=== PATIENT | male | born 1960 | race Two or more races ===

== ENCOUNTER 2019-12-30 15:07 | Inpatient (IN) | payer BC, OTHER ==
[~2019-12-30] VITALS: Ht 170.2 cm; Wt 80.6 kg
[2019-12-30 17:11] LABS: BASOPHILS % (AUTO) 0 % (0-1); EOSINOPHILS % (AUTO) 0 % (1-7); LYMPHOCYTES % (AUTO) 18 % (22-44); MEAN CORPUSCULAR HEMOGLOBIN 29.6 pg (27.5-34.5); MEAN CORPUSCULAR HGB CONC 34.6 g/dL (33.2-36.2); MEAN PLATELET VOLUME 8.1 fL (7.4-10.4); MONOCYTES % (AUTO) 4 % (2-9); NEUTROPHILS % (AUTO) 77 % (42-75); PLATELET COUNT 195 x10^3/uL (130-400); RED BLOOD COUNT 5.78 x10^6/uL (4.38-5.82); RED CELL DISTRIBUTION WIDTH 12.3 % (9.4-14.8)
[2019-12-30 17:15] LABS: MD NO
[2019-12-30 17:22] LABS: ALKALINE PHOSPHATASE 94 U/L (45-117); BILIRUBIN,TOTAL 0.4 mg/dL (0.2-1.0); TOTAL PROTEIN 7.7 g/dL (6.4-8.2)
[2019-12-30 17:28] LABS: ANION GAP 4 mmol/L (5-15); CHLORIDE 100 mmol/L (98-107)
--- NOTE | 2019-12-30 17:40 | NUR ---
PIV PLACED. IVF RUNNING. EKG COMPLETE. DAUGHTER AT BEDSIDE TO TRANSLATE.
[2019-12-30 17:47] LABS: CALCIUM 8.6 mg/dL (8.5-10.1); CREATININE 0.97 mg/dL (0.7-1.3)
[2019-12-30 17:48] LABS: ALANINE AMINOTRANSFERASE 48 U/L (12-78); ALBUMIN 2.9 g/dL (3.4-5.0)
[2019-12-30] MEDS ORDERED: SODIUM CHLORIDE FLUSH 10ML SYR IVF ONE (18:00)
[2019-12-30] MEDS ORDERED: SODIUM CHLORIDE 0.9% 1,000ML IVBOLUS ONE (18:00)
--- NOTE | 2019-12-30 18:23 | NUR ---
MD AT BEDSIDE FOR ASSESSMENT. MD NOTIFIED ABOUT LOW OXYGEN LEVEL. 87% RA. PT PLACED ON 2L, 96%
[2019-12-30] MEDS ORDERED: CEFTRIAXONE PMX 1GM/50ML 50 ML ONE (18:51)
[2019-12-30] MEDS ORDERED: CEFTRIAXONE PMX 1GM/50ML 50 ML IV ONE (19:00)
[2019-12-30] MEDS ORDERED: ACETAMINOPHEN 500 MG TABLET ONE (20:23)
[2019-12-30] MEDS ORDERED: ACETAMINOPHEN 500 MG TABLET PO ONE (20:30)
--- NOTE | 2019-12-30 21:13 | NUR ---
REPORT GIVEN TO DINA WOO.
[2019-12-30] MEDS ORDERED: IBUPROFEN 200 MG TABLET PO ONE (22:30)
[2019-12-30 23:14] VITALS: BP 132/83
[2019-12-30] MEDS: DEXAMETHASONE 4 MG TABLET PO SCH (23:30)
[2019-12-30] MEDS ORDERED: CEFTRIAXONE PMX 1GM/50ML 50 ML IVPB SCH (23:30)
[2019-12-30] MEDS ORDERED: PHARMACY MAY ADJ FOR RENAL FX MC PRN (23:30)
[2019-12-30] MEDS ORDERED: SODIUM CHLORIDE 0.9% 1,000 ML IV SCH (23:30)
[2019-12-30] MEDS ORDERED: ACETAMINOPHEN 325 MG TABLET PO PRN (23:30)
[2019-12-31] MEDS: ASCORBIC ACID 500 MG TABLET PO SCH ×3 (00:30→21:52)
[2019-12-31] MEDS: MELATONIN 5 MG TABLET PO SCH ×2 (00:30→21:52)
[2019-12-31 00:35] VITALS: BP 137/86
[2019-12-31] MEDS: DOXYCYCLINE 100 MG in DEXTROSE 5% 250 ML IV SCH ×2 (00:49→12:19)
[2019-12-31 02:15] LABS: RAPID INFLUENZA A Negative (Negative); RAPID INFLUENZA B Negative (Negative)
[2019-12-31 04:39] VITALS: BP 145/87
[2019-12-31 06:29] LABS: BASOPHILS % (AUTO) 1 % (0-1); EOSINOPHILS % (AUTO) 0 % (1-7); LYMPHOCYTES % (AUTO) 6 % (22-44); MEAN CORPUSCULAR HEMOGLOBIN 29.6 pg (27.5-34.5); MEAN CORPUSCULAR HGB CONC 35.1 g/dL (33.2-36.2); MEAN PLATELET VOLUME 8.5 fL (7.4-10.4); MONOCYTES % (AUTO) 3 % (2-9); NEUTROPHILS % (AUTO) 90 % (42-75); PLATELET COUNT 198 x10^3/uL (130-400); RED CELL DISTRIBUTION WIDTH 12.5 % (9.4-14.8)
[2019-12-31 06:30] LABS: MD NO
[2019-12-31 06:43] LABS: ALBUMIN 2.4 g/dL (3.4-5.0); ANION GAP 9 mmol/L (5-15); CALCIUM 7.8 mg/dL (8.5-10.1); CHLORIDE 105 mmol/L (98-107)
[2019-12-31 06:50] LABS: ALANINE AMINOTRANSFERASE 36 U/L (12-78); ALKALINE PHOSPHATASE 85 U/L (45-117); BILIRUBIN,TOTAL 0.6 mg/dL (0.2-1.0); CREATININE 0.75 mg/dL (0.7-1.3); TOTAL PROTEIN 6.7 g/dL (6.4-8.2); TROPONIN I < 0.015 ng/mL (0.000-0.045)
[2019-12-31] MEDS: DEXAMETHASONE 4 MG TABLET PO SCH (07:30)
[2019-12-31] MEDS ORDERED: FUROSEMIDE 40 MG/4 ML IV ONE (07:30)
[2019-12-31 07:47] VITALS: BP 144/88
[2019-12-31] MEDS ORDERED: REMDESIVIR 200 MG in SODIUM CHLORIDE 0.9% 250 ML IVPB ONE (08:00)
[2019-12-31] MEDS: ZINC SULFATE 220 MG CAPSULE PO SCH (08:07)
[2019-12-31] MEDS: CHOLECALCIFEROL 5,000u TAB PO SCH (08:07)
[2019-12-31] MEDS: THIAMINE 100MG TABLET PO SCH (08:07)
[2019-12-31 10:38] LABS: D-DIMER 0.82 ug/mlFEU (0.00-0.52)
[2019-12-31 13:34] VITALS: BP 126/65
[2019-12-31] MEDS: ENOXAPARIN 60 MG/0.6 ML SQ SCH (14:16)
[2019-12-31] MEDS ORDERED: TEMAZEPAM 15 MG CAPSULE PO PRN (17:00)
[2019-12-31 19:17] VITALS: BP 134/84
[2019-12-31] MEDS: DOXYCYCLINE 100MG TABLET PO SCH ×2 (21:00→21:52)
[2020-01-01 00:02] VITALS: BP 117/74
[2020-01-01 05:45] VITALS: BP 106/66
[2020-01-01 05:52] LABS: INTERNATIONAL NORMALIZED RATIO 1.01 (0.93-1.1); PROTHROMBIN TIME 10.7 Seconds (9.6-11.5)
[2020-01-01 05:53] LABS: BASOPHILS % (AUTO) 0 % (0-1); EOSINOPHILS % (AUTO) 0 % (1-7); LYMPHOCYTES % (AUTO) 10 % (22-44); MEAN CORPUSCULAR HEMOGLOBIN 29.2 pg (27.5-34.5); MEAN CORPUSCULAR HGB CONC 34.6 g/dL (33.2-36.2); MEAN PLATELET VOLUME 8.2 fL (7.4-10.4); MONOCYTES % (AUTO) 5 % (2-9); NEUTROPHILS % (AUTO) 84 % (42-75); PLATELET COUNT 258 x10^3/uL (130-400); RED CELL DISTRIBUTION WIDTH 12.5 % (9.4-14.8)
[2020-01-01 05:56] LABS: ALBUMIN 2.4 g/dL (3.4-5.0); ANION GAP 7 mmol/L (5-15); CALCIUM 8.4 mg/dL (8.5-10.1); CHLORIDE 105 mmol/L (98-107)
[2020-01-01 06:01] LABS: ALANINE AMINOTRANSFERASE 43 U/L (12-78); ALKALINE PHOSPHATASE 80 U/L (45-117); BILIRUBIN,TOTAL 0.5 mg/dL (0.2-1.0); CREATININE 0.74 mg/dL (0.7-1.3); TOTAL PROTEIN 6.8 g/dL (6.4-8.2)
[2020-01-01 06:37] LABS: MD SCAN
[2020-01-01 07:56] VITALS: BP 108/70
[2020-01-01] MEDS ORDERED: POTASSIUM CHLORIDE 20 MEQ TAB.ER.PRT PO SCH (08:00)
[2020-01-01] MEDS: REMDESIVIR 100 MG in SODIUM CHLORIDE 0.9% 250 ML IVPB SCH (08:04)
[2020-01-01] MEDS: THIAMINE 100MG TABLET PO SCH (08:10)
[2020-01-01] MEDS: ENOXAPARIN 60 MG/0.6 ML SQ SCH (08:10)
[2020-01-01] MEDS: ZINC SULFATE 220 MG CAPSULE PO SCH (08:10)
[2020-01-01] MEDS: CHOLECALCIFEROL 5,000u TAB PO SCH (08:10)
[2020-01-01] MEDS: ASCORBIC ACID 500 MG TABLET PO SCH ×2 (08:10→22:16)
[2020-01-01] MEDS: FUROSEMIDE 40 MG/4 ML IV SCH (08:11)
[2020-01-01] MEDS: DEXAMETHASONE 4 MG/ML, 1ML IVPush SCH (08:11)
[2020-01-01] MEDS: DOXYCYCLINE 100MG TABLET PO SCH ×2 (08:30→22:16)
[2020-01-01 12:57] VITALS: BP 113/70
[2020-01-01] MEDS: CEFTRIAXONE PMX 2GM/50ML 50 ML IVPB SCH (14:32)
[2020-01-01 19:15] VITALS: BP 131/82
[2020-01-01] MEDS: POTASSIUM CHLORIDE 20 MEQ TAB.ER.PRT PO SCH (22:17)
[2020-01-01] MEDS: MELATONIN 5 MG TABLET PO SCH (22:17)
[2020-01-02 00:37] VITALS: BP 127/78
[2020-01-02 06:26] LABS: CHLORIDE 106 mmol/L (98-107)
[2020-01-02 06:39] LABS: ANION GAP 7 mmol/L (5-15); CALCIUM 7.9 mg/dL (8.5-10.1); CREATININE 0.63 mg/dL (0.7-1.3)
[2020-01-02 06:40] LABS: ALANINE AMINOTRANSFERASE 42 U/L (12-78); ALBUMIN 2.2 g/dL (3.4-5.0); ALKALINE PHOSPHATASE 72 U/L (45-117); BILIRUBIN,TOTAL 0.5 mg/dL (0.2-1.0); C-REACTIVE PROTEIN, QUANT 3.18 mg/dL (0.02-0.49); TOTAL PROTEIN 5.8 g/dL (6.4-8.2)
[2020-01-02 08:03] VITALS: BP 122/73
[2020-01-02 08:08] LABS: BASOPHILS % (AUTO) 0 % (0-1); EOSINOPHILS % (AUTO) 0 % (1-7); LYMPHOCYTES % (AUTO) 12 % (22-44); MEAN CORPUSCULAR HEMOGLOBIN 29.4 pg (27.5-34.5); MEAN PLATELET VOLUME 7.9 fL (7.4-10.4); MONOCYTES % (AUTO) 4 % (2-9); NEUTROPHILS % (AUTO) 84 % (42-75); PLATELET COUNT 299 x10^3/uL (130-400); RED BLOOD COUNT 4.65 x10^6/uL (4.38-5.82); RED CELL DISTRIBUTION WIDTH 12.9 % (9.4-14.8)
[2020-01-02] MEDS ORDERED: ASCORBIC ACID 250 MG TAB ONE (08:42)
[2020-01-02] MEDS: ASCORBIC ACID 500 MG TABLET PO SCH ×2 (08:50→19:56)
[2020-01-02] MEDS: REMDESIVIR 100 MG in SODIUM CHLORIDE 0.9% 250 ML IVPB SCH (08:50)
[2020-01-02] MEDS: ENOXAPARIN 60 MG/0.6 ML SQ SCH (08:50)
[2020-01-02] MEDS: CHOLECALCIFEROL 5,000u TAB PO SCH (08:51)
[2020-01-02] MEDS: DOXYCYCLINE 100MG TABLET PO SCH ×2 (08:51→19:57)
[2020-01-02] MEDS: DEXAMETHASONE 4 MG/ML, 1ML IVPush SCH (08:51)
[2020-01-02] MEDS: THIAMINE 100MG TABLET PO SCH (08:51)
[2020-01-02] MEDS: FUROSEMIDE 40 MG/4 ML IV SCH (08:51)
[2020-01-02] MEDS: ZINC SULFATE 220 MG CAPSULE PO SCH (08:51)
[2020-01-02] MEDS: POTASSIUM CHLORIDE 20 MEQ TAB.ER.PRT PO SCH ×2 (08:51→19:57)
[2020-01-02 12:20] VITALS: BP 109/69
[2020-01-02 12:23] LABS: MD SCAN
[2020-01-02] MEDS: CEFTRIAXONE PMX 2GM/50ML 50 ML IVPB SCH (13:48)
[2020-01-02 18:53] VITALS: BP 118/68
[2020-01-02] MEDS: MELATONIN 5 MG TABLET PO SCH (19:56)
[2020-01-03 00:46] VITALS: BP 135/79
[2020-01-03 05:48] LABS: BASOPHILS % (AUTO) 0 % (0-1); EOSINOPHILS % (AUTO) 0 % (1-7); LYMPHOCYTES % (AUTO) 10 % (22-44); MEAN CORPUSCULAR HEMOGLOBIN 29.1 pg (27.5-34.5); MEAN CORPUSCULAR HGB CONC 34.1 g/dL (33.2-36.2); MEAN PLATELET VOLUME 7.8 fL (7.4-10.4); MONOCYTES % (AUTO) 5 % (2-9); NEUTROPHILS % (AUTO) 85 % (42-75); PLATELET COUNT 368 x10^3/uL (130-400); RED BLOOD COUNT 4.71 x10^6/uL (4.38-5.82); RED CELL DISTRIBUTION WIDTH 12.8 % (9.4-14.8)
[2020-01-03 05:49] LABS: CALCIUM 8.1 mg/dL (8.5-10.1); CHLORIDE 111 mmol/L (98-107)
[2020-01-03 05:55] LABS: ALANINE AMINOTRANSFERASE 47 U/L (12-78); ALBUMIN 2.2 g/dL (3.4-5.0); ALKALINE PHOSPHATASE 82 U/L (45-117); ANION GAP 7 mmol/L (5-15); BILIRUBIN,TOTAL 0.5 mg/dL (0.2-1.0); CREATININE 0.67 mg/dL (0.7-1.3); TOTAL PROTEIN 6.1 g/dL (6.4-8.2)
[2020-01-03 06:21] LABS: MD NO
[2020-01-03 06:58] VITALS: BP 147/82
[2020-01-03] MEDS: REMDESIVIR 100 MG in SODIUM CHLORIDE 0.9% 250 ML IVPB SCH (10:01)
[2020-01-03] MEDS: DEXAMETHASONE 4 MG/ML, 1ML IVPush SCH (10:02)
[2020-01-03] MEDS: ENOXAPARIN 60 MG/0.6 ML SQ SCH (10:02)
[2020-01-03] MEDS: POTASSIUM CHLORIDE 20 MEQ TAB.ER.PRT PO SCH ×2 (10:02→20:35)
[2020-01-03] MEDS: ASCORBIC ACID 500 MG TABLET PO SCH ×2 (10:02→20:35)
[2020-01-03] MEDS: FUROSEMIDE 40 MG/4 ML IV SCH (10:02)
[2020-01-03] MEDS: DOXYCYCLINE 100MG TABLET PO SCH (10:02)
[2020-01-03] MEDS: CHOLECALCIFEROL 5,000u TAB PO SCH (10:03)
[2020-01-03] MEDS: THIAMINE 100MG TABLET PO SCH (10:03)
[2020-01-03] MEDS: ZINC SULFATE 220 MG CAPSULE PO SCH (10:03)
[2020-01-03 13:34] VITALS: BP 115/68
[2020-01-03 19:50] VITALS: BP 117/72
[2020-01-03] MEDS: MELATONIN 5 MG TABLET PO SCH (20:35)
[2020-01-04 00:36] VITALS: BP 134/77
[2020-01-04 06:23] LABS: BASOPHILS % (AUTO) 0 % (0-1); EOSINOPHILS % (AUTO) 0 % (1-7); LYMPHOCYTES % (AUTO) 13 % (22-44); MEAN CORPUSCULAR HEMOGLOBIN 29.3 pg (27.5-34.5); MEAN CORPUSCULAR HGB CONC 34.3 g/dL (33.2-36.2); MEAN PLATELET VOLUME 7.4 fL (7.4-10.4); MONOCYTES % (AUTO) 6 % (2-9); NEUTROPHILS % (AUTO) 81 % (42-75); PLATELET COUNT 424 x10^3/uL (130-400); RED BLOOD COUNT 4.59 x10^6/uL (4.38-5.82); RED CELL DISTRIBUTION WIDTH 12.5 % (9.4-14.8)
[2020-01-04 06:24] LABS: MD NO
[2020-01-04 06:28] LABS: CHLORIDE 111 mmol/L (98-107)
[2020-01-04 06:33] LABS: ALANINE AMINOTRANSFERASE 48 U/L (12-78); ALBUMIN 2.1 g/dL (3.4-5.0); ALKALINE PHOSPHATASE 81 U/L (45-117); ANION GAP 8 mmol/L (5-15); BILIRUBIN,TOTAL 0.5 mg/dL (0.2-1.0); CALCIUM 8.4 mg/dL (8.5-10.1); CREATININE 0.56 mg/dL (0.7-1.3); TOTAL PROTEIN 6.1 g/dL (6.4-8.2)
[2020-01-04 07:39] VITALS: BP 144/74
[2020-01-04] MEDS: ENOXAPARIN 60 MG/0.6 ML SQ SCH (08:26)
[2020-01-04] MEDS: ZINC SULFATE 220 MG CAPSULE PO SCH (08:27)
[2020-01-04] MEDS: POTASSIUM CHLORIDE 20 MEQ TAB.ER.PRT PO SCH (08:27)
[2020-01-04] MEDS: DEXAMETHASONE 4 MG/ML, 1ML IVPush SCH (08:27)
[2020-01-04] MEDS: FUROSEMIDE 40 MG/4 ML IV SCH (08:27)
[2020-01-04] MEDS: CHOLECALCIFEROL 5,000u TAB PO SCH (08:27)
[2020-01-04] MEDS: THIAMINE 100MG TABLET PO SCH (08:27)
[2020-01-04] MEDS: ASCORBIC ACID 500 MG TABLET PO SCH ×2 (08:27→20:28)
[2020-01-04] MEDS: REMDESIVIR 100 MG in SODIUM CHLORIDE 0.9% 250 ML IVPB SCH (09:33)
[2020-01-04 12:07] VITALS: BP 168/69
[2020-01-04 16:53] VITALS: BP 166/70
[2020-01-04 18:50] VITALS: BP 105/63
[2020-01-04] MEDS: MELATONIN 5 MG TABLET PO SCH (20:28)
[2020-01-05 00:32] VITALS: BP 159/87
[2020-01-05 05:26] LABS: BASOPHILS % (AUTO) 0 % (0-1); EOSINOPHILS % (AUTO) 0 % (1-7); LYMPHOCYTES % (AUTO) 15 % (22-44); MEAN CORPUSCULAR HEMOGLOBIN 29.5 pg (27.5-34.5); MEAN CORPUSCULAR HGB CONC 34.9 g/dL (33.2-36.2); MEAN PLATELET VOLUME 7.3 fL (7.4-10.4); MONOCYTES % (AUTO) 6 % (2-9); NEUTROPHILS % (AUTO) 79 % (42-75); PLATELET COUNT 520 x10^3/uL (130-400); RED CELL DISTRIBUTION WIDTH 12.5 % (9.4-14.8)
[2020-01-05 05:33] LABS: ANION GAP 4 mmol/L (5-15); CALCIUM 8.1 mg/dL (8.5-10.1); CHLORIDE 110 mmol/L (98-107)
[2020-01-05 05:37] LABS: MD NO
[2020-01-05 05:41] LABS: ALANINE AMINOTRANSFERASE 39 U/L (12-78); ALKALINE PHOSPHATASE 73 U/L (45-117); BILIRUBIN,TOTAL 0.4 mg/dL (0.2-1.0); C-REACTIVE PROTEIN, QUANT 5.23 mg/dL (0.02-0.49); CREATININE 0.66 mg/dL (0.7-1.3); TOTAL PROTEIN 5.9 g/dL (6.4-8.2)
[2020-01-05 08:26] VITALS: BP 121/74
[2020-01-05] MEDS: THIAMINE 100MG TABLET PO SCH (08:55)
[2020-01-05] MEDS: CHOLECALCIFEROL 5,000u TAB PO SCH (08:55)
[2020-01-05] MEDS: ASCORBIC ACID 500 MG TABLET PO SCH ×2 (08:55→20:26)
[2020-01-05] MEDS: ENOXAPARIN 60 MG/0.6 ML SQ SCH (08:55)
[2020-01-05] MEDS: DEXAMETHASONE 4 MG/ML, 1ML IVPush SCH (08:55)
[2020-01-05] MEDS: ZINC SULFATE 220 MG CAPSULE PO SCH (08:55)
[2020-01-05 13:48] VITALS: BP 110/70
[2020-01-05 19:12] VITALS: BP 117/67
[2020-01-05] MEDS: MELATONIN 5 MG TABLET PO SCH (20:26)
[2020-01-06 00:54] VITALS: BP 158/84
[2020-01-06 06:37] LABS: BASOPHILS % (AUTO) 0 % (0-1); EOSINOPHILS % (AUTO) 1 % (1-7); LYMPHOCYTES % (AUTO) 17 % (22-44); MEAN CORPUSCULAR HGB CONC 34.4 g/dL (33.2-36.2); MEAN PLATELET VOLUME 7.2 fL (7.4-10.4); MONOCYTES % (AUTO) 7 % (2-9); NEUTROPHILS % (AUTO) 76 % (42-75); PLATELET COUNT 564 x10^3/uL (130-400); RED BLOOD COUNT 4.69 x10^6/uL (4.38-5.82); RED CELL DISTRIBUTION WIDTH 12.7 % (9.4-14.8)
[2020-01-06 06:38] LABS: MD NO
[2020-01-06 06:50] LABS: ALBUMIN 2.1 g/dL (3.4-5.0); ANION GAP 7 mmol/L (5-15); CALCIUM 8.1 mg/dL (8.5-10.1); CHLORIDE 112 mmol/L (98-107)
[2020-01-06 06:59] LABS: ALANINE AMINOTRANSFERASE 32 U/L (12-78); ALKALINE PHOSPHATASE 71 U/L (45-117); BILIRUBIN,TOTAL 0.4 mg/dL (0.2-1.0); CREATININE 0.66 mg/dL (0.7-1.3); TOTAL PROTEIN 6.1 g/dL (6.4-8.2)
[2020-01-06 08:14] VITALS: BP 124/71
[2020-01-06] MEDS: THIAMINE 100MG TABLET PO SCH (08:28)
[2020-01-06] MEDS: ASCORBIC ACID 500 MG TABLET PO SCH ×2 (08:28→20:46)
[2020-01-06] MEDS: CHOLECALCIFEROL 5,000u TAB PO SCH (08:28)
[2020-01-06] MEDS: DEXAMETHASONE 4 MG/ML, 1ML IVPush SCH (08:29)
[2020-01-06] MEDS: ZINC SULFATE 220 MG CAPSULE PO SCH (08:29)
[2020-01-06] MEDS: ENOXAPARIN 60 MG/0.6 ML SQ SCH (08:30)
[2020-01-06 14:36] VITALS: BP 107/63
[2020-01-06 19:05] VITALS: BP 129/68
[2020-01-06] MEDS: MELATONIN 5 MG TABLET PO SCH (20:46)
[2020-01-07 00:46] VITALS: BP 150/88
[2020-01-07 05:47] LABS: BASOPHILS % (AUTO) 1 % (0-1); EOSINOPHILS % (AUTO) 0 % (1-7); LYMPHOCYTES % (AUTO) 17 % (22-44); MEAN CORPUSCULAR HEMOGLOBIN 29.3 pg (27.5-34.5); MEAN CORPUSCULAR HGB CONC 34.3 g/dL (33.2-36.2); MEAN PLATELET VOLUME 7.1 fL (7.4-10.4); MONOCYTES % (AUTO) 8 % (2-9); NEUTROPHILS % (AUTO) 73 % (42-75); PLATELET COUNT 585 x10^3/uL (130-400); RED BLOOD COUNT 4.71 x10^6/uL (4.38-5.82); RED CELL DISTRIBUTION WIDTH 12.5 % (9.4-14.8)
[2020-01-07 05:49] LABS: MD NO
[2020-01-07 05:57] LABS: ALBUMIN 2.1 g/dL (3.4-5.0); ANION GAP 6 mmol/L (5-15); CALCIUM 8.1 mg/dL (8.5-10.1); CHLORIDE 112 mmol/L (98-107)
[2020-01-07 06:01] LABS: ALANINE AMINOTRANSFERASE 38 U/L (12-78); ALKALINE PHOSPHATASE 69 U/L (45-117); BILIRUBIN,TOTAL 0.4 mg/dL (0.2-1.0); CREATININE 0.63 mg/dL (0.7-1.3); TOTAL PROTEIN 6.2 g/dL (6.4-8.2)
[2020-01-07 07:14] VITALS: BP 165/91
[2020-01-07] MEDS: CHOLECALCIFEROL 5,000u TAB PO SCH (07:52)
[2020-01-07] MEDS: ENOXAPARIN 60 MG/0.6 ML SQ SCH (07:52)
[2020-01-07] MEDS: ASCORBIC ACID 500 MG TABLET PO SCH ×2 (07:52→19:58)
[2020-01-07] MEDS: ZINC SULFATE 220 MG CAPSULE PO SCH (07:52)
[2020-01-07] MEDS: THIAMINE 100MG TABLET PO SCH (07:52)
[2020-01-07] MEDS: DEXAMETHASONE 4 MG/ML, 1ML IVPush SCH (07:53)
[2020-01-07 12:18] VITALS: BP 112/68
[2020-01-07 18:56] VITALS: BP 115/66
[2020-01-07] MEDS: MELATONIN 5 MG TABLET PO SCH (19:58)
[2020-01-08 00:33] VITALS: BP 150/82
[2020-01-08 07:04] VITALS: BP 155/88
[2020-01-08] MEDS: ENOXAPARIN 60 MG/0.6 ML SQ SCH (09:00)
[2020-01-08] MEDS: DEXAMETHASONE 4 MG/ML, 1ML IVPush SCH (09:00)
[2020-01-08] MEDS: ZINC SULFATE 220 MG CAPSULE PO SCH (09:46)
[2020-01-08] MEDS: ASCORBIC ACID 500 MG TABLET PO SCH (09:46)
[2020-01-08] MEDS: THIAMINE 100MG TABLET PO SCH (09:46)
[2020-01-08] MEDS: CHOLECALCIFEROL 5,000u TAB PO SCH (09:46)
== END 2020-01-08 13:10 | disposition home or self-care (01) | DRG 177 ==
LOC: ED 20:17 → EDIP 20:44 → 3N 21:30 → 4EST 01-02 17:39
PROVIDERS: ADMIT Internal Medicine; ATTEND Family Medicine
PROC: XW033E5 Introduction of Remdesivir Anti-infective into Peripheral Vein, Percutaneous Approach, New Technology Group 5 (ICD-10-PCS; principal; 2020-01-01)
DX: U07.1 COVID-19 (principal); J96.01 Acute respiratory failure with hypoxia; J12.89 Other viral pneumonia; R03.0 Elevated blood-pressure reading, without diagnosis of hypertension; R74.01 Elevation of levels of liver transaminase levels; Z79.899 Other long term (current) drug therapy; Z79.891 Long term (current) use of opiate analgesic; Z79.01 Long term (current) use of anticoagulants
CPT/HCPCS: 36415; 36600; 71045; 80053; 82728; 82803; 83605; 83615; 83735; 83880; 84145; 84484; 85025; 85379; 85384; 85610; 86140; 87040; 87400; 93005; 96365; 96375; 99285; G0378; J0696; J1100; J1650; J1940; J7060; J7030; J7050; U0003